=== PATIENT | female | born 1995 | race Caucasian/White ===

== ENCOUNTER 2018-05-05 15:24 | Inpatient (IN) ==
--- NOTE | 2018-05-05 16:06 | Emergency Department Note ---
Disposition Referrals: NONE,PCP [Primary Care Provider] - Wound/Laceration HPI - General Stated Complaint: wound RLE Time Seen by Provider: 05/05/18 15:41 Source: patient Mode of arrival: ambulatory Limitations: no limitations Nursing Notes Reviewed: Yes Vital Signs Reviewed: Yes - History of Present Illness Onset (ago): month(s) (1) Extremity Location: Right: thigh - Related Data Previous Rx's Medication Instructions Recorded Mupirocin [Bactroban Oint] 1 appl TP TID #1 tube 04/19/18 Allergies Allergy/AdvReac Type Severity Reaction Status Date / Time No Known Allergies Allergy Verified 04/19/18 21:07 Past Medical History - Past Medical History Medical history: Reports: other Psychiatric history: Reports: anxiety, bipolar - Social History Smoking Status: Former smoker Smokeless Tobacco Status: No Alcohol use: Reports: none Drug use: Reports: none
--- NOTE | 2018-05-05 16:54 | Emergency Department Note ---
Disposition Clinical Impression: Sepsis Qualifiers: Sepsis type: sepsis due to unspecified organism Qualified Code(s): A41.9 - Sepsis, unspecified organism Disposition: Admitted As Inpatient Condition: Good Time of Disposition: 18:44 General Adult HPI - General Chief complaint: ED Skin/Abscess/Foreign Body Stated complaint: wound RLE Time Seen by Provider: 05/05/18 15:41 Source: patient Limitations: no limitations Nursing Notes Reviewed: Yes Vital Signs Reviewed: Yes - History of Present Illness HPI Narrative: Patient complaining of a healing wound to the right lateral leg. States that yesterday she was in the shower it did start to drain. She is been treated with topical antibiotics. She reports yesterday she started developing a subjective fever. Had myalgias. No cough but does report aching all over her body which includes her chest area. Reports some mild shortness of breath but no cough. Patient is a resident at the [facility]. Does have a history of IV drug use with the last time around December. She reports no recent illnesses. She has Reiger is on my exam. Lung sounds are clear heart tones are normal. Abdomen is soft and nontender. Does have left-sided CVA tenderness on exam. Pain Scale: 7 - Related Data Home Medications Medication Instructions Recorded Confirmed No Known Home Drugs 05/05/18 05/05/18 Allergies Allergy/AdvReac Type Severity Reaction Status Date / Time No Known Allergies Allergy Verified 05/05/18 18:45 All systems ED: reviewed and negative except as stated. Constitutional: Reports: fever, chills Eyes: Denies: eye pain, eye discharge, vision change ENT ED: Denies: congestion Cardiovascular: Reports: chest pain. Denies: palpitations, syncope Respiratory: Reports: dyspnea. Denies: cough Gastrointestinal: Denies: abdominal pain, nausea, vomiting, diarrhea, hematemesis, melena, hematochezia Genitourinary: Reports: other. Denies: urgency, dysuria, frequency Musculoskeletal: Reports: myalgia Integumentary: Reports: lesions (Right lateral thigh). Denies: rash Neurological: Reports: headache. Denies: weakness, numbness, paresthesias Past Medical History - Past Medical History Attestation: Yes The following information was validated with the patient. Source: patient Medical history: Reports: other Psychiatric history: Reports: anxiety, bipolar - Social History Smoking Status: Former smoker Smokeless Tobacco Status: No Alcohol use: Reports: none Drug use: Reports: none Physical Exam - General Limitations: no limitations General appearance: anxious - Head Head exam: atraumatic, normocephalic, normal inspection - Eye Eye exam: Present: normal appearance, PERRL, EOMI - ENT ENT exam: normal exam, normal oropharynx, mucous membranes moist - Neck Neck exam: Present: normal inspection, full ROM, trachea midline - Chest Chest inspection: Present: normal inspection, symmetric chest wall rise - Respiratory Respiratory exam: Present: normal lung sounds bilaterally. Absent: respiratory distress, accessory muscle use - Cardiovascular Cardiovascular exam: Present: normal rhythm, tachycardia, normal heart sounds - Abdominal Exam Abdominal exam: Present: soft, Non-Tender. Absent: tenderness, distention, guarding, rebound, rigidity, organomegaly, Thao's sign, Rovsing's sign, tenderness at McBurney's Point - Extremities Exam Extremities exam: Present: normal inspection, full ROM, normal capillary refill. Absent: tenderness, pedal edema, calf tenderness - Back Exam Back exam: Present: normal inspection, full ROM, CVA tenderness (L). Absent: CVA tenderness (R) - Neurological Exam Neurological exam: Present: alert, oriented X3 - Psychiatric Psychiatric exam: Present: normal affect, normal mood - Skin Skin exam: Present: warm, dry, normal color. Absent: rash, cyanosis - Expanded Skin Exam 1 - Small area of previous abscess. Areas open. Not erythematous. No crepitus. No pain to palpation. No palpable abscess. No drainage. Course Course Narrative: Female patient with a history of an abscess to her right lateral thigh presenting to the emergency department complaining of fevers and chills that started last night. She reports a foul smelling urine as well. No dysuria or increased frequency. She reports reports left-sided CVA tenderness as well. No nausea vomiting or diarrhea. Does report an aching sensation in her chest as well as shortness of breath. Patient's wound on her right lateral thigh is not impressive. It does appear as if it is healing. There are no cellulitic changes. Bedside ultrasound showed no abscess formation. There is no discharged. She states she was in the shower last night and it did open and drain. There is no crepitus around the area. There is no swelling. Patient has no swelling to her extremities. And sounds are clear heart tones are tachycardic. Her abdomen is soft nontender. She does have left-sided CVA tenderness on exam. Patient has appears to be a pyelonephritis. We have started patient on Rocephin at this time. She reports that she had to be admitted one other time when she was younger for pyelonephritis. Patient's lactate is normal however she was initially tachycardic when she came in. She did receive 2 L of fluid. We will admit patient to the hospital for urosepsis. Vital Signs Temperature 101.1 F H 05/05/18 16:16 Pulse Rate 126 05/05/18 16:16 Respiratory Rate 20 05/05/18 16:16 Blood Pressure 116/77 05/05/18 16:16 O2 Sat by Pulse Oximetry 92 05/05/18 16:16 Temperature 98.8 F 05/05/18 20:00 Pulse Rate 111 05/05/18 20:00 Respiratory Rate 18 05/05/18 20:00 Blood Pressure 90/52 05/05/18 20:00 O2 Sat by Pulse Oximetry 96 05/05/18 20:00 Oxygen Delivery Oxygen Delivery Room Air Medical Decision Making - Medical Records Medical records reviewed: Yes I reviewed the patient's medical records. - Lab Data Lab results reviewed: Yes I reviewed the patient's lab results. Result diagrams: 05/05/18 17:38 05/05/18 17:38 Lab Results 05/05/18 05/05/18 05/05/18 Range/Units 17:38 17:38 17:38 WBC 16.9 H (4.3-11.1) K/mcL RBC 4.64 (3.82-4.97) M/mcL Hgb 14.1 (11.5-15.4) g/dL Hct 40.2 (35.3-44.9) % MCV 86.6 (83.0-100.0) fL MCH 30.4 (28.0-33.3) pg MCHC 35.1 (31.6-35.5) g/dL RDW 12.3 (11.5-14.5) % Plt Count 201 (140-400) K/mcL MPV 10.2 (9.4-12.4) fL Immature Gran % 0.5 (0-4) % Seg Neutrophils % 76.9 % Lymphocytes % 10.0 % Monocytes % 12.2 % Eosinophils % 0.2 % Basophils % 0.2 % Neutrophils # 13.0 H (1.6-8.9) K/mcL Lymphocytes # 1.7 (0.6-4.6) K/mcL Monocytes # 2.1 H (0.0-1.3) K/mcL Eosinophils # 0.0 (0.0-0.6) K/mcL Basophils # 0.0 (0.0-0.2) K/mcL Sodium 134 L (136-145) mEq/L Potassium 3.5 (3.5-5.1) mEq/L Chloride 102 (98-107) mEq/L Carbon Dioxide 23 (23-29) mEq/L BUN 12 (6-20) mg/dL Creatinine 0.74 (0.60-1.20) mg/dL Est GFR ( Amer) > 60 (> 60) Est GFR (Non-Af Amer) > 60 (> 60) BUN/Creatinine Ratio 16 (6-26) Glucose 100 (70-105) mg/dL Calculated Osmolality 278 L (280-300) Lactic Acid 1.2 (0.5-2.2) mmol/L Calcium 9.9 (8.6-10.3) mg/dL Troponin I < 0.03 (< 0.04) ng/mL Urine Color (Yellow) Urine Clarity (Clear) Urine pH (5.0-8.0) pH Units Ur Specific Floyd (1.010-1.025) Urine Protein (Neg-Trace) mg/dL Urine Glucose (UA) (Normal) mg/dL Urine Ketones (Negative) mg/dL Urine Blood (Negative) Urine Nitrite (Negative) Urine Bilirubin (Negative) Urine Urobilinogen (Normal) mg/dL Ur Leukocyte Esterase (Negative) Urine Microscopic RBC (0-3) per hpf Urine Microscopic WBC (0-3) per hpf Ur Squamous Epith Cells (None-Few) per lpf Urine Bacteria (None-Few) per hpf Hyaline Casts (None-Few) per lpf Ur Culture Indicated? (NO) Urine Test (Negative) 05/05/18 05/05/18 Range/Units 18:07 18:07 WBC (4.3-11.1) K/mcL RBC (3.82-4.97) M/mcL Hgb (11.5-15.4) g/dL Hct (35.3-44.9) % MCV (83.0-100.0) fL MCH (28.0-33.3) pg MCHC (31.6-35.5) g/dL RDW (11.5-14.5) % Plt Count (140-400) K/mcL MPV (9.4-12.4) fL Immature Gran % (0-4) % Seg Neutrophils % % Lymphocytes % % Monocytes % % Eosinophils % % Basophils % % Neutrophils # (1.6-8.9) K/mcL Lymphocytes # (0.6-4.6) K/mcL Monocytes # (0.0-1.3) K/mcL Eosinophils # (0.0-0.6) K/mcL Basophils # (0.0-0.2) K/mcL Sodium (136-145) mEq/L Potassium (3.5-5.1) mEq/L Chloride (98-107) mEq/L Carbon Dioxide (23-29) mEq/L BUN (6-20) mg/dL Creatinine (0.60-1.20) mg/dL Est GFR ( Amer) (> 60) Est GFR (Non-Af Amer) (> 60) BUN/Creatinine Ratio (6-26) Glucose (70-105) mg/dL Calculated Osmolality (280-300) Lactic Acid (0.5-2.2) mmol/L Calcium (8.6-10.3) mg/dL Troponin I (< 0.04) ng/mL Urine Color Yellow (Yellow) Urine Clarity Cloudy A (Clear) Urine pH 6.5 (5.0-8.0) pH Units Ur Specific Floyd 1.016 (1.010-1.025) Urine Protein 30 H (Neg-Trace) mg/dL Urine Glucose (UA) Normal (Normal) mg/dL Urine Ketones Negative (Negative) mg/dL Urine Blood Negative (Negative) Urine Nitrite Positive A (Negative) Urine Bilirubin Negative (Negative) Urine Urobilinogen Normal (Normal) mg/dL Ur Leukocyte Esterase Large H (Negative) Urine Microscopic RBC 3-5 H (0-3) per hpf Urine Microscopic WBC TNTC H (0-3) per hpf Ur Squamous Epith Cells Many H (None-Few) per lpf Urine Bacteria Many H (None-Few) per hpf Hyaline Casts Few (None-Few) per lpf Ur Culture Indicated? NO. A (NO) Urine Test Negative (Negative) - Radiology Data Radiology results reviewed: Yes I reviewed the patient's radiology results. Chest X-Ray 05/05/18 17:47 IMPRESSION: No acute process. D/ / Harry Eddy MD / Harry Eddy MD Interpreting Provider: Harry Eddy MD - EKG Data EKG #1 EKG attestation: Yes I reviewed and interpreted this EKG. EKG results narrative: Sinus tachycardia at a rate of 142. KS interval is 107. QRS duration is 76. QT is 3:30. QTC is 522. No signs of acute ischemia. No previous EKG to compare to. Attestation Statement - Attestation Attestation: I, Miky Pedro, examined this patient and my medical decision-making was reviewed with the ASSORTMENT PLANNER/PA/Advanced Practice Nurse/Resident Physician. I agree with the documented findings, disposition and treatment plan as described except to the extent set forth below. 23-year-old female presents emergency Department with concerns of fever, chills , nausea, vomiting. Patient states symptoms started within the past 24 hours. Patient had burning with urination and foul smell. Patient had urinary tract infection on exam. Left CVA tenderness. She will be admitted for likely pyelonephritis. Patient also complained of a wound to the right lateral thigh which has been improving at home. This is unlikely the cause of her symptoms.
[2018-05-05 17:58] LABS: Basophils % 0.2 %; Eosinophils % 0.2 %; Hematocrit 40.2 % (35.3-44.9); Hemoglobin 14.1 g/dL (11.5-15.4); Immature Granulocytes % 0.5 % (0-4); Lymphocytes # 1.7 K/mcL (0.6-4.6); Mean Corpuscular HGB Conc 35.1 g/dL (31.6-35.5); Mean Corpuscular Hemoglobin 30.4 pg (28.0-33.3); Mean Corpuscular Volume 86.6 fL (83.0-100.0); Mean Platelet Volume 10.2 fL (9.4-12.4); Monocytes # 2.1 K/mcL (0.0-1.3); Monocytes % 12.2 %; Platelet Count 201 K/mcL (140-400); Red Blood Count 4.64 M/mcL (3.82-4.97); Red Cell Distribution Width 12.3 % (11.5-14.5); Segmented Neutrophils % 76.9 %
[2018-05-05] MEDS: 0.9 % Sodium Chloride 1,000 ML IVC SCH ×2 (18:02→19:01)
[2018-05-05 18:16] LABS: Bilirubin,Urine Negative (Negative); Blood,Urine Negative (Negative); Clarity,Urine Cloudy (Clear); Color,Urine Yellow (Yellow); Glucose,Urine (UA) Normal (Normal); Ketones,Urine Negative (Negative); Leukocyte Esterase,Urine Large (Negative); Nitrite,Urine Positive (Negative); PH,Urine 6.5 pH Units (5.0-8.0); Protein,Urine 30 mg/dL (Neg-Trace); Specific Gravity,Urine 1.016 (1.010-1.025); Urobilinogen,Urine Normal (Normal)
[2018-05-05 18:19] LABS: Bacteria,Urine Many per hpf (None-Few); Hyaline Casts,Urine Few per lpf (None-Few); Squamous Epithelial Cell,Urine Many per lpf (None-Few); WBC,Urine TNTC per hpf (0-3)
[2018-05-05 18:25] LABS: BUN/Creatinine Ratio 16 (6-26); Blood Urea Nitrogen 12 mg/dL (6-20); Calcium 9.9 mg/dL (8.6-10.3); Carbon Dioxide 23 mEq/L (23-29); Chloride 102 mEq/L (98-107); Glucose 100 mg/dL (70-105); Osmolality,Calculated 278 (280-300); Potassium 3.5 mEq/L (3.5-5.1); Sodium 134 mEq/L (136-145); eGFR For Non-African Americans > 60 (> 60)
[2018-05-05] MEDS ORDERED: cefTRIAXone 1,000 MG in Water for inj. (sterile) 20 ML 10 ML IVP ONE (18:34)
[2018-05-05] MEDS ORDERED: Ketorolac 15 MG/ML VIAL IVP ONE (18:38)
[2018-05-05 18:59] LABS: Troponin I < 0.03 ng/mL (< 0.04)
[2018-05-05] MEDS ORDERED: Naloxone 0.4 MG/ML INJ IVP PRN (22:08)
--- NOTE | 2018-05-05 22:30 | Internal Med History&Physical ---
Date of Encounter: 05/05/18 Time of Encounter: 21:20 Internal Medicine - H&P: HPI Chief complaint: Pyelonephritis Admitted From: Home Plans for Post Hospital Care: Home History of present illness: Ms. Rodrigez is a 23 year old female Patient presented to the ER initially to be evaluated for a right leg wound that she has been dealing with for several weeks. She says that this morning it opened up and pus came out of it. Currently she denies pain at the site, and says that it is feeling much better. Tests and labs performed in the ER however revealed a UTI. Patient denies dysuria but has had foul smelling urine for the last few days. She has had UTIs in the past, but not since she was 13. She denies fever, chest pain, abdominal pain, back pain, nausea, vomiting, diarrhea and constipation. Chest x-ray showed no acute process. UA showed positive nitrites and large leukocyte esterase with many bacteria. She was admitted for management of her pyelonephritis. She met spesis criteria for elevated temperature and heart rate, with elevated WBCs and UTI. Currently she denies pain, and wants to order a pizza. Past Med Surg Social Fam HX - Past Medical History Medical history: other Additional medical history: "may have hep c" Psychiatric history: anxiety, bipolar - Social History Smoking Status: Former smoker Smokeless Tobacco Status: No Alcohol use: none Drug use: none Internal Medicine - H&P: Meds No Known Home Drugs 05/05/18 [History] 3 Allergy/AdvReac Type Severity Reaction Status Date / Time No Known Allergies Allergy Verified 05/05/18 18:45 All Systems PM: A 10-system review of systems was performed and is negative for pertinent findings except as documented above in the HPI. - Constitutional Vitals: Temp Pulse Resp BP Pulse Ox 98.8 F 111 18 90/52 96 05/05/18 20:00 05/05/18 20:00 05/05/18 20:00 05/05/18 20:00 05/05/18 20:00 General appearance: Present: cooperative, A&O X 3, pleasant, no acute distress, answers questions appropriately - Head Head exam: Present: normal inspection - Eye Eye exam: Present: EOMI, normal appearance - Respiratory Respiratory exam: Present: CTAB. Absent: chest wall tenderness, decreased breath sounds, respiratory distress, wheezes - Cardiovascular Cardiovascular exam: Present: RRR. Absent: diastolic murmur, systolic murmur - GI/Abdominal GI/Abdominal exam: Present: normal bowel sounds, soft. Absent: tenderness - Extremities Exam Extremities exam: Present: warm, radial pulses palpable and symmetrical. Absent : pedal edema, tenderness - Back Exam Back exam: Present: CVA tenderness (L). Absent: CVA tenderness (R) - Neurological Exam Neurological exam: Present: no focal deficits, strengths equal and symetr throughout. Absent: motor sensory deficit, facial droop, speech deficit - Skin Skin exam: Present: dry, normal color, warm Additional comments: Right lateral thigh has small area of redness with skin breakdown from previous blistering. No tenderness to palpation, no discharge noted. Internal Med - H&P Results - Labs CBC & Chem 7: 05/05/18 17:38 05/05/18 17:38 - Assessment and plan (1) Sepsis Current Visit: Yes Status: Acute Assessment and plan: Improved from initial presentation, patient had a temperature of 101.1, heart rate of 111 and elevated white count of 16.9. Currently vitals have improved, patient is afebrile. UA showed likely infection. Started on ceftriaxone in the ER. Cultures drawn for blood and urine. Continue antibiotics Follow up culture results Monitor for signs of worsening infection, vitals Q shift. Qualifiers: Sepsis type: sepsis due to unspecified organism Qualified Code(s): A41.9 - Sepsis, unspecified organism (2) Pyelonephritis Current Visit: Yes Status: Acute Assessment and plan: As evidenced by UA. Continue antibiotics as above Follow up culture results. (3) Leg wound, right Current Visit: Yes Status: Acute Assessment and plan: Small area on outer right thigh, not tender at this time, wound culture drawn. Patient on ceftriaxone for pyelonephritis, will start oral Bactrim for this and follow up wound cultures. Qualifiers: Qualified Code(s): S81.801A - Unspecified open wound, right lower leg, initial encounter (4) DVT prophylaxis Current Visit: Yes Status: Acute Assessment and plan: SCDs - Time Spent With Patient Total time spent is greater than 50% in coordination of care (as documented) at patient's floor/unit and/or counseling patient: Greater than 35 minutes
[2018-05-05] MEDS: Sulfamethoxazole/Trimeth DS 1 EACH TABLET PO SCH (22:56)
[2018-05-05] MEDS: Acetaminophen 325 MG TABLET PO PRN (23:49)
[2018-05-06 06:50] LABS: Hematocrit 36.3 % (35.3-44.9); Hemoglobin 12.8 g/dL (11.5-15.4); Mean Corpuscular HGB Conc 35.3 g/dL (31.6-35.5); Mean Corpuscular Hemoglobin 29.8 pg (28.0-33.3); Mean Corpuscular Volume 84.4 fL (83.0-100.0); Mean Platelet Volume 9.9 fL (9.4-12.4); Platelet Count 177 K/mcL (140-400); Red Cell Distribution Width 12.5 % (11.5-14.5)
[2018-05-06 07:12] LABS: BUN/Creatinine Ratio 16 (6-26); Blood Urea Nitrogen 12 mg/dL (6-20); Calcium 9.1 mg/dL (8.6-10.3); Carbon Dioxide 24 mEq/L (23-29); Chloride 106 mEq/L (98-107); Glucose 108 mg/dL (70-105); Osmolality,Calculated 280 (280-300); Potassium 3.8 mEq/L (3.5-5.1); Sodium 135 mEq/L (136-145); eGFR For Non-African Americans > 60 (> 60)
[2018-05-06] MEDS: Acetaminophen 325 MG TABLET PO PRN ×2 (08:36→18:10)
[2018-05-06] MEDS: Sulfamethoxazole/Trimeth DS 1 EACH TABLET PO SCH ×2 (08:36→20:57)
[2018-05-06] MEDS ORDERED: cefTRIAXone 1,000 MG in Water for inj. (sterile) 20 ML 10 ML IVP SCH (09:00)
[2018-05-06] MEDS ORDERED: cefTRIAXone 2,000 MG in Water for inj. (sterile) 20 ML 20 ML IVP SCH (09:00)
[2018-05-06] MEDS ORDERED: cefTRIAXone 1,000 MG in Water for inj. (sterile) 20 ML 10 ML IVP ONE (09:34)
--- NOTE | 2018-05-06 09:55 | Internal Med Progress Note ---
Hospitalist Progress Note - Encounter Date of Encounter: 05/06/18 Time of Encounter: 09:52 - Subjective Interval History: Patient is seen and evaluated at the bedside. She is a 23-year-old female with medical history of migraine headaches wheeze admitted and being managed for sepsis secondary to suspected pyelonephritis During evaluation this morning, she remains tachycardic with heart rate of 120, blood pressure is low at the time of review. She is awake alert and denies any new complaints. - Exam Vitals: Temp Pulse Resp BP Pulse Ox 98.8 F 111 14 80/56 98 05/06/18 07:04 05/06/18 07:04 05/06/18 07:04 05/06/18 07:04 05/06/18 07:04 Exam: Gen.: Young female, Alert awake and oriented, not in any form of distress. HEENT: PERRL/EOMI, oropharynx clear, Normo cephalic, atraumatic, moist oral mucosa Cardiac: Tachycardic, regular and normal rhythm. No murmurs gallops or rubs Lungs: CTA bilaterally, no wheezes, rales or rhonchi, equal chest expansion Abdomen: Soft and nontender MSK:Right lateral thigh has small area of redness with skin breakdown from previous blistering. No tenderness to palpation, no discharge noted. Extremities: No pedal edema Skin: Facial acne, otherwise no rash Back: Equivocal left CVA tenderness Neuro: A&Ox3, moves all extremities, no focal deficits Psych: Appropriate mood and behavior - Assessment and Plan (1) Sepsis Current Visit: Yes Status: Acute Assessment and Plan: Met sepsis criteria on admission with a temperature 101.1, tachycardia with heart rate of 2 120, leukocytosis of 16,000 and source of infection likely urinary tract infection and or left leg wound Lactates on admission was normal at 1.2 Blood pressure at this morning borderline low Start patient on IV fluid at 100 mL per hour Follow blood cultures Follow urine culture Follow wound culture Tylenol when necessary fever Increase Rocephin to 2 g Continue Bactrim (2) DVT prophylaxis Current Visit: Yes Status: Acute Assessment and Plan: Ambulate patient (3) Leg wound, right Current Visit: Yes Status: Acute Assessment and Plan: Continue Bactrim Follow wound culture (4) Pyelonephritis Current Visit: Yes Status: Suspected Assessment and Plan: Suspected due to equivocal left CVA tenderness and abnormal urine analysis Obtain CAT scan - Time Spent with Patient Total time spent is greater than 50% in coordination of care (as documented) at patient's floor/unit and/or counseling patient: Plan of Care Discussed with: patient Internal Medicine: Result - Labs CBC & Chem 7: 05/06/18 06:33 05/06/18 06:33 Labs: Short CBC 05/06/18 Range/Units 06:33 WBC 15.8 H (4.3-11.1) K/mcL Hgb 12.8 (11.5-15.4) g/dL Hct 36.3 (35.3-44.9) % Plt Count 177 (140-400) K/mcL BMP 05/06/18 06:33 Sodium 135 L Potassium 3.8 Chloride 106 Carbon Dioxide 24 BUN 12 Creatinine 0.76 Glucose 108 H Calcium 9.1 - VTE Documentation of Mechanical Device: Intermittent pneumatic compression device Consult Discharge Plan - Plan Referrals: NONE,PCP [Primary Care Provider] - (1) Sepsis Qualifiers: Sepsis type: sepsis due to unspecified organism Qualified Code(s): A41.9 - Sepsis, unspecified organism (3) Leg wound, right Qualifiers: Qualified Code(s): S81.801A - Unspecified open wound, right lower leg, initial encounter
[2018-05-06] MEDS: 0.9 % Sodium Chloride 1,000 ML IVC SCH ×2 (11:07→18:11)
--- NOTE | 2018-05-06 17:28 | Electrocardiograph Report ---
[place] [id number] Test Date: 2018-05-05 Pat Name: Yaima Rodrigez Department: Room: 3A Gender: F [employer]: : [id number] Requested By: Merlene Faust Order Number: [id number] Reading MD: Maryjo Johnson Measurements Intervals [place] Rate: 142 P: 63 MA: 107 QRS: 73 QRSD: 76 T: -90 QT: 339 QTc: 522 Interpretive Statements Baseline artifact, consider sinus tachycardia Low voltage, precordial leads Borderline repolarization abnormality Electronically Signed On 05-06-2018 17:26:25 EDT by Maryjo Johnson
[2018-05-06] MEDS ORDERED: Acetaminophen IV 500 MG/50 ML INFUS..BTL IVPB ONE (21:30)
[2018-05-07] MEDS: 0.9 % Sodium Chloride 1,000 ML IVC SCH ×2 (04:18→16:28)
[2018-05-07 05:57] LABS: Basophils % 0.3 %; Eosinophils # 0.3 K/mcL (0.0-0.6); Eosinophils % 2.5 %; Hematocrit 33.5 % (35.3-44.9); Hemoglobin 11.8 g/dL (11.5-15.4); Immature Granulocytes % 0.2 % (0-4); Lymphocytes # 2.1 K/mcL (0.6-4.6); Lymphocytes % 21.1 %; Mean Corpuscular HGB Conc 35.2 g/dL (31.6-35.5); Mean Corpuscular Hemoglobin 30.8 pg (28.0-33.3); Mean Corpuscular Volume 87.5 fL (83.0-100.0); Mean Platelet Volume 10.5 fL (9.4-12.4); Monocytes # 1.5 K/mcL (0.0-1.3); Monocytes % 15.6 %; Neutrophils # 5.9 K/mcL (1.6-8.9); Platelet Count 164 K/mcL (140-400); Red Blood Count 3.83 M/mcL (3.82-4.97); Red Cell Distribution Width 12.6 % (11.5-14.5); Segmented Neutrophils % 60.3 %
[2018-05-07 06:33] LABS: BUN/Creatinine Ratio 17 (6-26); Blood Urea Nitrogen 11 mg/dL (6-20); Calcium 8.3 mg/dL (8.6-10.3); Carbon Dioxide 21 mEq/L (23-29); Chloride 112 mEq/L (98-107); Glucose 106 mg/dL (70-105); Osmolality,Calculated 286 (280-300); Potassium 3.4 mEq/L (3.5-5.1); Sodium 138 mEq/L (136-145); eGFR For Non-African Americans > 60 (> 60)
[2018-05-07] MEDS: Sulfamethoxazole/Trimeth DS 1 EACH TABLET PO SCH (08:54)
[2018-05-07] MEDS: cefTRIAXone 2,000 MG in Water for inj. (sterile) 20 ML 20 ML IVP SCH (08:55)
--- NOTE | 2018-05-07 11:00 | Internal Med Progress Note ---
Hospitalist Progress Note - Encounter Date of Encounter: 05/07/18 Time of Encounter: 10:10 - Subjective Interval History: Patient is seen and evaluated at the bedside. She is a 23-year-old female with medical history of migraine headaches who is admitted and being managed for sepsis secondary to suspected pyelonephritis She denies new complains She continues to have L flank pain R thigh skin infection is almost resolved She has been afebrile for 24 hrs Awaiting urine culture - Exam Vitals: Temp Pulse Resp BP Pulse Ox 99.0 F 89 16 96/63 97 05/07/18 10:51 05/07/18 10:51 05/07/18 10:51 05/07/18 10:51 05/07/18 10:51 Exam: Gen.: Young female, Alert awake and oriented, not in any form of distress. HEENT: PERRL/EOMI, oropharynx clear, Normo cephalic, atraumatic, moist oral mucosa Cardiac: HR WNL, regular and normal rhythm. No murmurs gallops or rubs Lungs: CTA bilaterally, no wheezes, rales or rhonchi, equal chest expansion Abdomen: Soft and nontender MSK:Right lateral thigh has small area of redness with skin breakdown from previous blistering. No induration or abscesses. No tenderness to palpation, no discharge noted. Extremities: No pedal edema Skin: Facial acne, otherwise no rash Back: Equivocal left CVA tenderness Neuro: A&Ox3, moves all extremities, no focal deficits Psych: Appropriate mood and behavior - Assessment and Plan (1) Sepsis Current Visit: Yes Status: Acute Assessment and Plan: Met sepsis criteria on admission with a temperature 101.1, tachycardia with heart rate of 2 120, leukocytosis of 16,000 and source of infection likely urinary tract infection and or left leg wound Lactates on admission was normal at 1.2 Blood pressure 8/15 borderline low, improving with IVF blood cultures prelim negative urine culture with GNR Follow wound culture Tylenol when necessary fever Continue Rocephin-Day 3 Discontinue bactrim (2) DVT prophylaxis Current Visit: Yes Status: Acute Assessment and Plan: Ambulate patient (3) Leg wound, right Current Visit: Yes Status: Acute Assessment and Plan: Skin breakdown is minimal discontinue Bactrim, patient is rocephin for UTI (4) Pyelonephritis Current Visit: Yes Status: Suspected Assessment and Plan: Confirmed on CT Continue rocephin, follow cultures (5) Hypokalemia Current Visit: Yes Status: Acute Assessment and Plan: replaced po - Time Spent with Patient Total time spent is greater than 50% in coordination of care (as documented) at patient's floor/unit and/or counseling patient: Plan of Care Discussed with: patient Internal Medicine: Result - Labs CBC & Chem 7: 05/07/18 05:43 05/07/18 05:43 Labs: Short CBC 05/07/18 Range/Units 05:43 WBC 9.8 (4.3-11.1) K/mcL Hgb 11.8 (11.5-15.4) g/dL Hct 33.5 L (35.3-44.9) % Plt Count 164 (140-400) K/mcL Neutrophils # 5.9 (1.6-8.9) K/mcL BMP 05/07/18 05:43 Sodium 138 Potassium 3.4 L Chloride 112 H Carbon Dioxide 21 L BUN 11 Creatinine 0.65 Glucose 106 H Calcium 8.3 L - VTE Documentation of Mechanical Device: Intermittent pneumatic compression device Consult Discharge Plan - Plan Referrals: NONE,PCP [Primary Care Provider] - (1) Sepsis Qualifiers: Sepsis type: sepsis due to unspecified organism Qualified Code(s): A41.9 - Sepsis, unspecified organism (3) Leg wound, right Qualifiers: Encounter type: initial encounter Qualified Code(s): S81.801A - Unspecified open wound, right lower leg, initial encounter
[2018-05-07] MEDS: Acetaminophen 325 MG TABLET PO PRN ×2 (16:27→23:39)
[2018-05-08] MEDS: 0.9 % Sodium Chloride 1,000 ML IVC SCH (03:00)
[2018-05-08 05:52] LABS: Basophils % 0.4 %; Eosinophils # 0.4 K/mcL (0.0-0.6); Hematocrit 32.1 % (35.3-44.9); Hemoglobin 10.9 g/dL (11.5-15.4); Immature Granulocytes % 0.3 % (0-4); Lymphocytes # 2.2 K/mcL (0.6-4.6); Lymphocytes % 29.1 %; Mean Corpuscular Hemoglobin 29.8 pg (28.0-33.3); Mean Corpuscular Volume 87.7 fL (83.0-100.0); Mean Platelet Volume 10.8 fL (9.4-12.4); Monocytes % 13.8 %; Neutrophils # 3.8 K/mcL (1.6-8.9); Platelet Count 193 K/mcL (140-400); Red Blood Count 3.66 M/mcL (3.82-4.97); Red Cell Distribution Width 12.8 % (11.5-14.5); Segmented Neutrophils % 51.4 %
[2018-05-08 07:18] LABS: BUN/Creatinine Ratio 16 (6-26); Blood Urea Nitrogen 10 mg/dL (6-20); Calcium 8.5 mg/dL (8.6-10.3); Carbon Dioxide 21 mEq/L (23-29); Chloride 112 mEq/L (98-107); Glucose 106 mg/dL (70-105); Osmolality,Calculated 287 (280-300); Potassium 3.7 mEq/L (3.5-5.1); Sodium 139 mEq/L (136-145); eGFR For Non-African Americans > 60 (> 60)
[2018-05-08 07:35] VITALS: BP 94/59
[2018-05-08] MEDS: cefTRIAXone 2,000 MG in Water for inj. (sterile) 20 ML 20 ML IVP SCH (08:15)
--- NOTE | 2018-05-08 09:33 | Discharge Summary ---
- NOTES TO OUTPATIENT PROVIDER Notes to Outpatient Provider: 23-year-old female was admitted for sepsis secondary to pyelonephritis from pansensitive Escherichia coli. Sepsis has resolved, she is clinically stable for discharge she has received 4 days of intravenous ceftriaxone, she is discharged on 3 more days of Omnicef twice a day. She is ambulatory and clinically stable Date of Encounter: 05/08/18 Time of Encounter: 09:33 - Discharge Diagnosis (1) Sepsis Priority: Primary Status: Resolved Qualifiers: Sepsis type: sepsis due to unspecified organism Qualified Code(s): A41.9 - Sepsis, unspecified organism (2) DVT prophylaxis Priority: Primary Status: Resolved (3) Leg wound, right Priority: Primary Status: Acute Qualifiers: Encounter type: initial encounter Qualified Code(s): S81.801A - Unspecified open wound, right lower leg, initial encounter (4) Pyelonephritis Priority: Primary Status: Suspected (5) Hypokalemia Priority: Primary Status: Resolved Hospital course: Ms. Rodrigez is a 23-year-old female was admitted for sepsis secondary to pyelonephritis from pansensitive Escherichia coli. Sepsis has resolved, she is clinically stable for discharge she has received 4 days of intravenous ceftriaxone, she is discharged on 3 more days of Omnicef twice a day. She is ambulatory and clinically stable Discharge discussed with: patient, nurse - Time Spent with Patient Total time spent providing and/or coordinating discharge services: Less than 30 minutes - Discharge Medications Prescriptions: Cefdinir [Omnicef] 300 mg PO BID #6 capsule Home Medications: Cefdinir [Omnicef] 300 mg PO BID #6 capsule 05/08/18 [Rx] Allergies/Adverse Reactions: 3 Allergy/AdvReac Type Severity Reaction Status Date / Time No Known Allergies Allergy Verified 05/05/18 18:45 Date of admission: 05/06/18 10:44 Primary care physician: PCP NONE Discharging clinician: David Keyes Anticipated date of discharge: 05/08/18 - Constitutional Vitals: Temp Pulse Resp BP Pulse Ox 98.9 F 88 14 94/59 97 05/08/18 07:32 05/08/18 07:32 05/08/18 07:32 05/08/18 07:32 05/08/18 07:32 General appearance: Present: cooperative, A&O X 3, pleasant, no acute distress, answers questions appropriately - Head Head exam: Present: atraumatic, normocephalic - Eye Eye exam: Present: PERRL, conjuntiva pink, sclera anicteric Pupils: Present: PERRL - Neck Neck exam general surgery: Present: supple, trachea midline. Absent: lymphadenopathy - Respiratory Respiratory exam: Present: CTAB. Absent: accessory muscle use, rales, rhonchi, wheezes - Cardiovascular Cardiovascular exam: Present: RRR, +S1, +S2. Absent: diastolic murmur, gallop, rubs, systolic murmur - GI/Abdominal GI/Abdominal exam: Present: normal bowel sounds, soft, no peritoneal signs. Absent: distended, tenderness - Extremities Exam Extremities exam: Present: warm, radial pulses palpable and symmetrical. Absent : calf tenderness, cyanotic, pedal edema - Neurological Exam Neurological exam: Present: CN II-XII intact, oriented X3, no focal deficits. Absent: pronater drift, facial droop, speech deficit - Skin Skin exam: Present: dry, intact - Patient Status Disposition: Home, Self-Care Condition: Good Functional capacity at discharge: independent ambulation Overall status at discharge: patient is back to baseline - Discharge Instructions Instructions: Sepsis (DC) Follow Up With: Lloyd Robertson [Resident] - 05/13/18 1:00 pm - Diet and Activity Activity: resume usual activities as tolerated Diet: regular diet - VTE Documentation of Mechanical Device: Intermittent pneumatic compression device
[2018-05-08] MEDS ORDERED: Cefdinir 300 MG CAPSULE PO SCH (17:00)
== END 2018-05-08 11:52 | disposition home or self-care (01) | DRG 720 ==
LOC: EMEROOARM 15:24 → 3ANU 15:24 → SUATTDRO 19:09 → 3ANU 19:41
PROVIDERS: ADMIT Internal Medicine; ATTEND Internal Medicine